=== PATIENT | female | born 1935 | race Caucasian/White ===

== ENCOUNTER 2016-11-01 21:46 | Inpatient (IN) | payer OTHER ==
--- NOTE | ~2016-11-01 | DS ---
Unit #: [id number] #: [id number] Patient: MARSHALL HAND [id number] [address] [address] [id number] I MR#: [id number] NAME: MARSHALL HAND ROOM: 55 Age: 81 Sex: F Admission Date: 11/02/2016 : 1935 Discharge Date: 11/05/2016 Attending Physician: Zahraa Araiza M.D. Primary Care Physician: Frederic KaurRMando DISCHARGE SUMMARY DISCHARGE DIAGNOSES 1. Acute pyelonephritis. 2. No sepsis. 3. Gram-positive cocci bacteremia secondary to contamination. 4. Parastomal hernia. 5. Hypokalemia. 6. Hypertension. 7. Bladder cancer. 8. History of recurrent urinary tract infections in the past. 9. Status post urostomy with Rascon catheter attached to it. CONSULTATIONS 1. [facility]. 2. Dr. Sosa. PROCEDURES None. ALLERGIES None. DISCHARGE MEDICATIONS 1. Requip 0.25 mg q.h.s. 2. Atenolol 25 daily. 3. Bactrim DS one tablet p.o. b.i.d. for 20 days. HOSPITALIZATION COURSE An 81 year old admitted because of fever and chills. Acute pyelonephritis with urostomy bag: Patient was seen by urologist. Cultures are growing Staph infection. Final cultures are pending. Patient is being discharged on Bactrim for [address] Stahl's recommendations. Patient is supposed to continue with Rascon catheter in place for a week and follow with Dr. Mcnamara in one-week's time. No sepsis: Patient has bacteremia secondary to contamination. Parastomal hernia: Patient is seen by [facility]. According to them no acute repair needed. Follow up as an outpatient. Hypokalemia: Replaced with p.o. potassium. Unit #: [id number] #: [id number] Patient: MARSHALL HAND DISPOSITION Patient to discharge home. FOLLOWUP 1. Follow with family physician in one-week's time. 2. Follow with Dr. Mcnamara in one-week's time. 3. Follow with Dr. Osborne in two-weeks' time. DISCHARGE INSTRUCTIONS Because patient is on Bactrim for 20 days, I am going to have her check a BMP in one-week's time and follow with family physician to check her kidney function. I discussed with her about the side effects of Bactrim and she understands that she needs to follow with PCP. Discharge time taken is 33 minutes. Dictated by... Jonatan Licona/laura TD: 11/05/2016 18:58 JOB #: [id number] DISCHARGE SUMMARY X Zahraa Araiza MD X DISCHARGE SUMMARY
--- NOTE | ~2016-11-01 | HP ---
Unit #: [id number] #: [id number] Patient: MARSHALL HAND [id number] [address] [address] [id number] I MR#: [id number] NAME: MARSHALL HAND. ROOM: 559 Age: 81 Sex: F Admission Date: 11/02/2016 : 1935 Attending Physician: Yaniv Arthur M.D. Primary Care Physician: Ledy Mena A.P.R.N. HISTORY AND PHYSICAL CHIEF COMPLAINT Fever, chills, abdominal pain. HISTORY OF PRESENT ILLNESS The patient is an 81-year-old female with history of bladder cancer who has a urostomy back in 2004, developing some abdominal pain and some fever and some difficulty walking for the past one day. She has a urostomy in situ. She has had some fever and chills and nausea and has presented to the emergency room for evaluation. Here in the emergency room, she was noted to have a mildly elevated white count of 10.2 and concern was that of possibly some obstruction versus pyelonephritis. She had some nausea and vomiting times 2, had some back pain and neck pain. She also had some chills as well. She denies any chest pain or shortness of breath or difficulty breathing. A complete 10-point review of systems has been done and pertinent positives noted. PAST MEDICAL HISTORY Significant for: 1. Bladder cancer in the past. 2. Hypertension. PAST SURGICAL HISTORY 1. Urostomy. 2. Bilateral knee replacement. 3. Hernia surgery x2. HOME MEDICATIONS Not reconciled at this time but include: 1. Requip. 2. Atenolol. 3. Levaquin. SOCIAL HISTORY . Lives with her . No alcohol use, tobacco use, or illicit drug use. FAMILY HISTORY Noncontributory. REVIEW OF SYSTEMS A complete 10-point review of systems has been done and pertinent positives noted. PHYSICAL EXAMINATION Unit #: [id number] #: [id number] Patient: MARSHALL HADN VITAL SIGNS: Blood pressure 193/84, pulse 83, respiratory rate 19, temperature 98.0. GENERAL: She was comfortable, not in distress. Ill-looking. EYES: Pupils were equal and reactive to light and accommodation. NECK: Supple without thyromegaly. LUNGS: Reduced breath sounds along the bases posteriorly. HEART: First and second heart sounds. ABDOMEN: Full, moves with respirations, soft. Urostomy in situ in the right lower quadrant. NEUROLOGIC: Alert and oriented x3. Moves all extremities spontaneously. Cranial nerves II-XII are grossly intact. SKIN: Warm and dry with no rashes. DIAGNOSTIC STUDIES LABORATORY: Chemistries glucose 147, BUN 24, creatinine 1.2, sodium 139, potassium 4.5, chloride 108, bicarb 22. CBC with WBC 9.9, hemoglobin 12.2, hematocrit 37.3, with a platelet count of 195, neutrophil count of 72.0 with lymphs of 21.1. Urinalysis did show trace leukocyte esterase, trace protein, blood 2+. ASSESSMENT AND PLAN 1. Fever, chills, possible pyelonephritis. She is currently on IV antibiotics and urology has been consulted. She is on Zosyn and vancomycin. 2. Hypertension. Blood pressure is elevated probably from anxiety at this point. Will follow the trend and see. 3. GI prophylaxis. Will put her on Protonix and Zofran for nausea. 4. Get a CBC and BMP in the morning. Dictated by Jonatan Akins/tiffany TD: 11/02/2016 18:48 JOB #: [id number] HISTORY AND PHYSICAL X Yaniv Arthur MD X HISTORY AND PHYSICAL
--- NOTE | ~2016-11-01 | CR4 ---
[facility]. [facility] A Service of [facility] & [facility] RADIOLOGY TEXT RESULTS PATIENT: MARSHALL HAND LOCATION: [place] [address] : 35 UNIT #: [id number] AGE: [address]: Zahraa Araiza MD SEX: F ORDER DR: [id number] [place] [id number] [facility]. [place], [place] [address] [id number] I MR#: [id number] Acc #: [id number] NAME: MARSHALL HAND : 1935 SEX: F STUDY DATE/TIME: 11/04/2016 9:46 UNIT: [facility] ROOM: [facility] STUDY DESCRIPTION: CR Abdomen Flat Upright or Dec Attending Physician: Zahraa Araiza M.D. Ordering Physician: Saravanan Mireles Jr., M.D. Primary Care Physician: Ledy Mena A.P.R.N. MEDICAL IMAGING REPORT This report is preliminary unless electronic signature is present EXAM Flat and upright abdomen, 11/04/2016 INDICATION 81-year-old female with right-sided flank pain and abdominal pain, ostomy. Symptoms for 2 days. TECHNIQUE Upright and supine views of the abdomen were performed. COMPARISON Correlation is made with CT 11/01/2016. FINDINGS Presumed upright view of the abdomen is not labeled as such. There is atelectasis in the lung bases. No free air identified. No dilated air-filled loops of bowel are seen. Postop changes present in the right lower quadrant and in the right upper quadrant. No mass effect or concerning calcifications. There is mild degenerative change in the lower lumbar spine and associated levoscoliosis. The patient underwent a loopogram procedure 11/02/2016. There is no residual contrast clearly present. IMPRESSION 1. Nonspecific but nonobstructive bowel gas pattern. No free air. 2. Postop changes as described. No residual contrast identified in the urinary collecting system or in the patient's right lower quadrant ileal conduit. Dictated by... Gautam Gil M.D. [facility] A Service of [facility] RADIOLOGY TEXT RESULTS PATIENT: MARSHALL HAND LOCATION: [facility] [place] [facility] : 35 UNIT #: [id number] AGE: [address]: Zahraa Araiza MD SEX: F ORDER DR: THIS IS AN ELECTRONICALLY VERIFIED REPORT Gautam Gil M.D. at 11/04/2016 3:02 PM Lisa TD: 11/04/2016 11:05 JOB #: [id number] MEDICAL IMAGING REPORT COPY
--- NOTE | ~2016-11-01 | CT4 ---
[facility] A Service of [facility] & [facility] RADIOLOGY TEXT RESULTS PATIENT: MARSHALL HAND LOCATION: [facility] 559- : 35 UNIT #: [id number] AGE: [address]: Yaniv Arthur MD SEX: F ORDER DR: [id number] [facility] [address] [place], [place] [address] [id number] I MR#: [id number] Acc #: [id number] NAME: MARSHALL HAND : 1935 SEX: F STUDY DATE/TIME: 11/01/2016 22:57 UNIT: [facility] ROOM: 569[address] STUDY DESCRIPTION: CT Abd and Pelv Wo Cont Attending Physician: Yaniv Arthur M.D. Ordering Physician: Juliet Lantigua M.D. Primary Care Physician: Ledy Mena A.P.R.N. MEDICAL IMAGING REPORT This report is preliminary unless electronic signature is present EXAM CT abdomen and pelvis 11/01/2016 22:57 INDICATION Right flank pain radiating to the back. Symptoms started today. History of bladder cancer. TECHNIQUE Axial images were obtained through the abdomen and pelvis without contrast. Multiplanar reformats were obtained. Comparison made with 06/20/2015. This CT examination was performed with one or more of the following radiation dose reduction techniques: automatic exposure control, adjustment of mA and/or kV according to patient size, and iterative reconstruction. FINDINGS ABDOMEN: There is some mild atelectasis or scarring in the lung bases. There is a small hiatal hernia. Gallbladder surgically absent. There is moderate bilateral hydronephrosis and hydroureter and there is marked bilateral perinephric fat stranding. All of these findings have worsened since the prior CT. Pyelonephritis cannot be excluded radiographically. The patient does have an ileal conduit with right lower quadrant urostomy. No obvious obstructing lesion is seen on either side. The remaining solid organs are normal. The unopacified GI tract is normal. PELVIS: There is a right lower quadrant urostomy. There is a parastomal herniation of a knuckle of colon. This is seen to some degree on the prior study. The amount of colon within the hernia is slightly increased. This is nonobstructing. The ileal conduit appears distended. There is some adjacent fat stranding suggesting inflammation or infection. The lower GI tract is grossly normal. Bladder surgically absent, as is the uterus. [facility] A Service of [facility] RADIOLOGY TEXT RESULTS PATIENT: MARSHALL HAND LOCATION: [facility] 559-01 : 35 UNIT #: [id number] AGE: [address]: Yaniv Arthur MD SEX: F ORDER DR: IMPRESSION 1. Patient has changes of cystectomy and ileal conduit placement. The patient has moderate bilateral hydronephrosis with marked bilateral perinephric fat stranding. These findings have worsened since the patient's prior CT in 2014. Additionally, the ileal conduit appears distended and there is some subtle adjacent fat stranding. All of these findings may be infectious or inflammatory. No clear obstructing lesion is seen. There are no stones. 2. There is a right lower quadrant urostomy with parastomal hernia of a knuckle of colon. The amount of colon within the hernia sac is increased but this appears non-incarcerating. 3. Status post cystectomy, hysterectomy, and cholecystectomy. Dictated by... Angus Langford Jr., M.D. THIS IS AN ELECTRONICALLY VERIFIED REPORT Angus Langford Jr., M.D. at 11/02/2016 8:43 PM ESSENCE/shila TD: 11/02/2016 09:29 JOB #: [id number] MEDICAL IMAGING REPORT COPY
--- NOTE | ~2016-11-01 | CO ---
Unit #: [id number] #: [id number] Patient: MARSHALL WIN L [id number] [address] [place], [place] [address] [id number] I MR#: [id number] NAME: MARSHALL WIN ROOM: 559 Age: 81 Sex: F Admission Date: 11/02/2016 : 1935 Attending Physician: Zahraa Araiza M.D. Primary Care Physician: Ledy Mena A.P.R.N. Consultation Date: 11/03/2016 CONSULTATION REPORT HISTORY AND EXAM Ms. Win is a pleasant 81-year-old female, who presented to the hospital with abdominal pain and weakness. She also noted some fever and chills and on evaluation was found to have urosepsis. She was admitted and started on appropriate antibiotics and she is feeling better. While she was here, a CT scan was obtained which showed a small parastomal hernia at the site of her ileal conduit. She has had a previous parastomal hernia repair in [address] Brooks. The followup loopogram showed no obstruction of the ileal conduit or ureters. The patient denies any vomiting and she has been tolerating most of her regular tray and has had normal bowel movements. PAST MEDICAL HISTORY Bladder cancer, status post cystectomy with ileal conduit; hypertension; bilateral knee replacement; hernia repair x2. ALLERGIES She are allergic to morphine, hydrocodone, and oxycodone, all of which cause vomiting. MEDICATIONS Include Requip, atenolol, and Levaquin. FAMILY HISTORY She is unaware of any chronic or inheritable diseases. SOCIAL HISTORY . Lives at home with her . Denies use of alcohol, tobacco, or recreational drugs. She is retired. REVIEW OF SYSTEMS Otherwise noncontributory. PHYSICAL EXAMINATION VITAL SIGNS: Temperature is 98.4, pulse 75, respirations 16, blood pressure is 140/73. GENERAL: She is awake, alert, and oriented. HEENT: Unremarkable. CARDIAC: Regular rhythm. LUNGS: Clear. ABDOMEN: Soft. It is nondistended. The ileal conduit is functional. She does not have any guarding or rebound at the site of the hernia or throughout her abdomen. The parastomal hernia appears to be reduced on current examination. Unit #: [id number] #: [id number] Patient: MARSHALL WIN EXTREMITIES: No edema. NEUROLOGIC: Grossly intact. DIAGNOSTIC STUDIES LABORATORY RESULTS: Comprehensive metabolic panel on admission was unremarkable. INR is 1.0. White count today is 7900 with normal differential, hemoglobin 11.6, platelets 169,000. Urinalysis showed pyuria and hematuria with leukocyte esterase, but nitrite negative. Urine culture grew out Staph coag-negative. CT scan and loopogram as discussed. ASSESSMENT AND PLAN An 81-year-old female, admitted with urosepsis and has an ileal conduit. She has a reducible, but recurrent parastomal hernia. At this time, I think that her urosepsis should be treated to resolution and we can follow her up in the office for an elective consideration of a parastomal hernia repair. I have discussed this at length with the patient and her . They understand and agree to follow up. Dictated by... Jonatan Go/wali TD: 11/03/2016 22:44 JOB #: [id number] CONSULTATION REPORT X Angus Arzola MD CONSULTATION REPORT
--- NOTE | ~2016-11-01 | CR180 ---
[facility] A Service of [facility] & [facility] RADIOLOGY TEXT RESULTS PATIENT: MARSHALL HAND LOCATION: [place] [address] : 35 UNIT #: [id number] AGE: [address]: Yaniv Arthur MD SEX: F ORDER DR: [id number] [facility] [address] [place], [place] [address] [id number] MR#: [id number] Acc #: [id number] NAME: MARSHALL HAND : 1935 SEX: F STUDY DATE/TIME: 11/02/2016 15:41 UNIT: [facility] ROOM: [facility] STUDY DESCRIPTION: CR Loopogram Attending Physician: Yaniv Arthur M.D. Ordering Physician: Amor Bee M.D. Primary Care Physician: Ledy Mena A.P.R.N. MEDICAL IMAGING REPORT This report is preliminary unless electronic signature is present EXAM Loopogram performed on 11/02/2016. CLINICAL HISTORY 81-year-old female with urinary pouch and abnormal CT appearance of the kidneys with urinary tract dilatation and perirenal inflammation. FINDINGS The catheter in the ileal pouch was injected with Cystografin and the ileal pouch was distended and reflux of both ureters into the collecting system was seen bilaterally. No extravasation of contrast was identified. No obstruction was appreciated. The injected contrast was then aspirated and removed with decompression of the pouch as well as collecting system bilaterally. No residual obstruction or dilatation is appreciated. Postvoid film was obtained of the abdomen and again no evidence to suggest an obstruction is seen. IMPRESSION No evidence of an obstruction to the ureters, collecting system, or ileal conduit. Dictated by... Albert Hawk M.D. THIS IS AN ELECTRONICALLY VERIFIED REPORT Albert Hawk M.D. at 11/03/2016 2:39 PM MASOOD/blanca TD: 11/03/2016 08:02 JOB #: [id number] [facility] A Service of [facility] RADIOLOGY TEXT RESULTS PATIENT: MARSHALL HAND LOCATION: [place] [address] : 35 UNIT #: [id number] AGE: [address]: Yaniv Arthur MD SEX: F ORDER DR: MEDICAL IMAGING REPORT COPY
[2016-11-01 21:31] LABS: BASOPHIL% 0.4 % (0-2.5); EOSINOPHIL# 0.2 X10e3 (0-0.7); EOSINOPHIL% 2.4 % (0.0-7.0); HEMATOCRIT 39.2 % (35.0-45.0); HEMOGLOBIN 12.7 gm/dL (12.0-16.0); MEAN CELL VOLUME 90.2 FL (83-96); MEAN CORPUSCULAR HEMOGLOBIN 29.2 PG (28-34); MEAN CORPUSCULAR HGB CONC 32.4 g/dL (30-36); MEAN PLATELET VOLUME 8.1 FL (6.5-11.5); MONOCYTE# 0.7 X10e3 (0-1.0); MONOCYTE% 6.8 % (3.0-12.0); NEUTROPHIL# 6.2 X10e3 (1.5-7.1); NEUTROPHIL% 61.4 % (40-75); PLATELET COUNT 211 X10e3 (140-420); RED BLOOD COUNT 4.34 X10e (3.90-5.30); WHITE BLOOD COUNT 10.2 X10e3 (4.0-10.5)
[2016-11-01 21:33] LABS: DIFF IND NO
[2016-11-01 21:45] LABS: PARTIAL THROMBOPLASTIN TIME 22.6 SECONDS (23.5-31.3); PROTHROMBIN TIME (PATIENT) 10.4 SECONDS (9.6-11.5)
[~2016-11-01 21:46] MED LIST: ACETAMINOPHEN PO; ALLERGY10 M1 PO; ATENOLOL25 MG PO; BACTRIM 400-801 TA1 PO; CIPRO PO; DARVOCET-N 1001 TA1 PO; FLORASTOR250 M1 PO; GABAPENTIN300 M2 PO; IBUPROFEN PO; LEVAQUIN PO; LORTAB 7.5-5001 TAB PO; MILK OF MAGNESIA PO; NO MEDICATIONS; PROTONIX PO; REQUIP0.25 MG PO
[2016-11-01 21:57] LABS: ALBUMIN SERUM 4.2 g/dL (3.5-5.0); BILIRUBIN, DIRECT 0.1 mg/dL (0.0-0.2); BILIRUBIN,INDIRECT 0.4 mg/dL (0.0-0.9); BILIRUBIN,TOTAL 0.5 mg/dL (0.2-2.0); BUN/CREATININE RATIO 19.28; CALCIUM SERUM 9.3 mg/dL (8.4-10.2); CREATININE SERUM 1.4 mg/dL (0.6-1.4); GLOM FILT RATE Estimated 38.4 mL/min (>60); POTASSIUM 4.2 mmol/L (3.5-5.1); PROTEIN TOTAL SERUM 7.3 g/dL (6.0-8.3)
[2016-11-01 22:45] LABS: URINE SOURCE CLEAN CATCH
[2016-11-01 22:49] LABS: URINE APPEARANCE CLOUDY; URINE BILIRUBIN NEG (NEG); URINE BLOOD 2+ (NEG); URINE COLOR YELLOW; URINE GLUCOSE NEG (NEG); URINE KETONE NEG (NEG); URINE LEUKOCYTE ESTERASE TRACE (NEG); URINE NITRATE NEG (NEG); URINE PH 7.5 (5-8); URINE PROTEIN TRACE (NEG); URINE SPECIFIC GRAVITY 1.011 (1.003-1.035); URINE UROBILINOGEN 0.2 MG/DL (NEG)
[2016-11-01 22:52] LABS: CULTURE INDICATED? YES; URINE BACTERIA AUWI 1+ (NEGATIVE); URINE SQUAMOUS EPITHELIAL CELL FEW /[HPF]
[2016-11-02 04:34] LABS: BASOPHIL% 0.1 % (0-2.5); EOSINOPHIL% 0.2 % (0.0-7.0); HEMATOCRIT 37.3 % (35.0-45.0); HEMOGLOBIN 12.2 gm/dL (12.0-16.0); LYMPHOCYTE# 2.1 X10e3 (1.0-3.5); LYMPHOCYTE% 21.1 % (17.0-45.0); MEAN CELL VOLUME 89.7 FL (83-96); MEAN CORPUSCULAR HEMOGLOBIN 29.4 PG (28-34); MEAN CORPUSCULAR HGB CONC 32.8 g/dL (30-36); MEAN PLATELET VOLUME 8.4 FL (6.5-11.5); MONOCYTE# 0.7 X10e3 (0-1.0); MONOCYTE% 6.6 % (3.0-12.0); NEUTROPHIL# 7.2 X10e3 (1.5-7.1); PLATELET COUNT 195 X10e3 (140-420); RED BLOOD COUNT 4.16 X10e (3.90-5.30); RED CELL DISTRIBUTION WIDTH 13.2 % (11.0-15.5); WHITE BLOOD COUNT 9.9 X10e3 (4.0-10.5)
[2016-11-02 04:39] LABS: DIFF IND NO
[2016-11-02 04:54] LABS: CALCIUM SERUM 8.7 mg/dL (8.4-10.2); CREATININE SERUM 1.2 mg/dL (0.6-1.4); GLOM FILT RATE Estimated 45.8 mL/min (>60); POTASSIUM 4.5 mmol/L (3.5-5.1)
[2016-11-03 06:23] LABS: HEMATOCRIT 35.6 % (35.0-45.0); HEMOGLOBIN 11.6 gm/dL (12.0-16.0); MEAN CELL VOLUME 90.9 FL (83-96); MEAN CORPUSCULAR HEMOGLOBIN 29.7 PG (28-34); MEAN CORPUSCULAR HGB CONC 32.6 g/dL (30-36); MEAN PLATELET VOLUME 8.9 FL (6.5-11.5); RED BLOOD COUNT 3.92 X10e (3.90-5.30); RED CELL DISTRIBUTION WIDTH 13.5 % (11.0-15.5); WHITE BLOOD COUNT 7.9 X10e3 (4.0-10.5)
[2016-11-03 07:04] LABS: BUN/CREATININE RATIO 14.54; CALCIUM SERUM 8.5 mg/dL (8.4-10.2); CREATININE SERUM 1.1 mg/dL (0.6-1.4); GLOM FILT RATE Estimated 50.7 mL/min (>60); POTASSIUM 3.9 mmol/L (3.5-5.1)
[2016-11-04 05:29] LABS: HEMATOCRIT 35.7 % (35.0-45.0); HEMOGLOBIN 11.6 gm/dL (12.0-16.0); MEAN CELL VOLUME 90.8 FL (83-96); MEAN CORPUSCULAR HEMOGLOBIN 29.4 PG (28-34); MEAN CORPUSCULAR HGB CONC 32.4 g/dL (30-36); MEAN PLATELET VOLUME 8.6 FL (6.5-11.5); RED BLOOD COUNT 3.94 X10e (3.90-5.30); RED CELL DISTRIBUTION WIDTH 13.3 % (11.0-15.5); WHITE BLOOD COUNT 7.2 X10e3 (4.0-10.5)
[2016-11-04 06:22] LABS: BUN/CREATININE RATIO 13.33; CALCIUM SERUM 8.7 mg/dL (8.4-10.2); CREATININE SERUM 1.2 mg/dL (0.6-1.4); GLOM FILT RATE Estimated 45.8 mL/min (>60); POTASSIUM 3.8 mmol/L (3.5-5.1)
[2016-11-05 06:48] LABS: HEMATOCRIT 33.6 % (35.0-45.0); MEAN CELL VOLUME 90.1 FL (83-96); MEAN CORPUSCULAR HEMOGLOBIN 29.4 PG (28-34); MEAN CORPUSCULAR HGB CONC 32.7 g/dL (30-36); RED BLOOD COUNT 3.73 X10e (3.90-5.30); RED CELL DISTRIBUTION WIDTH 13.4 % (11.0-15.5); WHITE BLOOD COUNT 6.5 X10e3 (4.0-10.5)
[2016-11-05 08:02] LABS: CALCIUM SERUM 8.3 mg/dL (8.4-10.2); GLOM FILT RATE Estimated 56.6 mL/min (>60); POTASSIUM 3.2 mmol/L (3.5-5.1)
[2016-11-05] MEDS ORDERED: BACTRIM DS TABL1 TA2 PO (15:23)
== END 2016-11-05 15:59 | disposition home or self-care (01) | DRG 690 ==
LOC: CED 21:46 → CEDOF 11-02 02:55 → C5B 11-02 17:01
PROVIDERS: Family Medicine; Internal Medicine; Student in an Organized Health Care Education/Training Program
PROC: BT0 Imaging, Urinary System, Plain Radiography (ICD-10-PCS; principal; 2016-11-02)
DX: N10 Acute pyelonephritis (principal); I10 Essential (primary) hypertension; K43.5 Parastomal hernia without obstruction or gangrene; E87.6 Hypokalemia; Z96.653 Presence of artificial knee joint, bilateral; Z85.51 Personal history of malignant neoplasm of bladder
CPT/HCPCS: 36415; 74020; 74176; 74425; 80048; 80076; 81003; 83605; 85025; 85027; 85610; 85730; 87040; 87086; 87088; 96361; 96374; 96375; 99285; C9113; J1170; J1650; J2270; J2405; J2543; J3370; Q9958

== ENCOUNTER → 2016-11-19 | Outpatient (CLI) | payer OTHER ==
[~2016-11-19] MED LIST changes: +BACTRIM DS TABL1 TA2 PO
--- NOTE | ~2016-11-19 | US77 ---
[facility] A Service of [facility] RADIOLOGY TEXT RESULTS PATIENT: MARSHALL HAND LOCATION: [facility] : 35 UNIT #: [id number] AGE: [address]: Sukumar Sosa MD SEX: F ORDER DR: [id number] [facility] [address] [facility]. [place], [place] [address] [id number] O MR#: [id number] Acc #: [id number] NAME: MARSHALL HAND : 1935 SEX: F STUDY DATE/TIME: 11/19/2016 9:30 UNIT: [facility] ROOM: STUDY DESCRIPTION: US Kidney Bilateral Complete Attending Physician: Sukumar Sosa M.D. Ordering Physician: Sukumar Sosa M.D. MEDICAL IMAGING REPORT This report is preliminary unless electronic signature is present EXAM Renal ultrasound HISTORY Cystectomy, this was performed in 2004. Patient had a CT of the abdomen and pelvis on November 01, 2016 which showed bilateral hydronephrosis. There is concern for pyelonephritis. TECHNIQUE Gates-scale and color Doppler sonographic images were obtained through the kidneys. FINDINGS Both kidneys appear to have areas of cortical thinning, likely reflecting the sequela of prior insults. However on today's study, I do not see any evidence of hydronephrosis. This patient has bilateral renal cysts. No solid renal masses are identified. IMPRESSION 1. No evidence of hydronephrosis on today's examination. 2. Bilateral renal cysts. 3. Areas of cortical irregularity and thinning seen within both kidneys, likely reflecting sequela of prior insults. Dictated by... Lissette Blue M.D. THIS IS AN ELECTRONICALLY VERIFIED REPORT Lissette Blue M.D. at 11/20/2016 10:49 AM AFF/pcl [facility] A Service of [facility] & [facility] RADIOLOGY TEXT RESULTS PATIENT: MARSHALL HAND LOCATION: [facility] : 35 UNIT #: [id number] AGE: [address]: Sukumar Sosa MD SEX: F ORDER DR: TD: 11/19/2016 20:03 JOB #: [id number] MEDICAL IMAGING REPORT COPY
[2016-11-19 09:49] LABS: BUN/CREATININE RATIO 17.14; CALCIUM SERUM 9.4 mg/dL (8.4-10.2); CREATININE SERUM 1.4 mg/dL (0.6-1.4); GLOM FILT RATE Estimated 38.4 mL/min (>60); POTASSIUM 4.4 mmol/L (3.5-5.1)
== END | disposition home or self-care (01) ==
LOC: CLAB 08:43
PROVIDERS: Urology
DX: N13.30 Unspecified hydronephrosis (principal); N28.1 Cyst of kidney, acquired
CPT/HCPCS: 36415; 76770; 80048